=== PATIENT | male | born 1965 | race Caucasian/White ===

== ENCOUNTER 2024-02-11 20:07 | Inpatient (IN) ==
[2024-02-11 20:50] LABS: ABS Basophils 0.1 10^3/uL (0.0-0.1); ABS Eosinophils 0.1 10^3/uL (0.0-0.5); ABS Lymphocytes 1.2 10^3/uL (1.0-4.8); ABS Monocytes 0.6 10^3/uL (0.0-1.1); ABS Neutrophils 6.1 10^3/uL (1.5-7.6); ABS Nucleated RBC 0.05 10^3/ul; Eosinophil % 0.7 %; Hematocrit 55.5 % (38-53); Hemoglobin 18.6 g/dL (13.2-16.3); Lymphocyte % 14.7 %; Mean Corpuscular Hemoglobin 33.3 pg (27-33); Mean Corpuscular Hgb Conc 33.5 g/dL (31-36); Mean Corpuscular Volume 99.5 fL (80-97); Mean Platelet Volume 8.5 fL (7.5-11.2); Nucleated Red Blood Cells % 0.7 %/100WBC (0.0-0.8); Platelet Count 193 10^3/uL (150-450); Red Blood Count 5.58 10^6/uL (4.06-5.63); Red Cell Distribution Width 21.1 % (12-17)
[2024-02-11 20:54] LABS: INR 1.79 (0.85-1.14)
[2024-02-11] MEDS: Furosemide 40 mg/4 ml IV VIAL IV SLOW PU ONE (20:57)
[2024-02-11 21:14] LABS: Calcium 10.3 mg/dL (8.6-10.3); Creatinine, Serum 1.46 mg/dL (0.67-1.17); Magnesium 2.2 mg/dL (1.9-2.7); Potassium 4.6 mmol/L (3.5-5.0); Total Bilirubin 4.7 mg/dL (0.2-1.0); eGFR CKD-EPI 54.7 (>60)
[2024-02-12 01:00] LABS: High Sensitivity Troponin 1 Hr 27 pg/mL (<20)
[2024-02-12] MEDS ORDERED: Metoprolol Tartrate 5 mg VIAL 5 ml VIAL (1 mg/ml) IV PRN ×2 (01:05→02:36)
[2024-02-12] MEDS ORDERED: Sulfur Hexaflouride MICROSPHR 25 MG VIAL IV PRN (02:22)
[2024-02-12] MEDS ORDERED: Albuterol HFA INHALER 8 gm MDI INH PRN (02:32)
[2024-02-12] MEDS: Enoxaparin 100 MG/ML SYR SUBCUT ONE (04:03)
[2024-02-12] MEDS: Bumetanide IV 0.25 MG/ML 4 ml VIAL (1 mg) IV SLOW PU ONE (04:03)
[2024-02-12 06:16] LABS: ABS Basophils 0.1 10^3/uL (0.0-0.1); ABS Lymphocytes 0.9 10^3/uL (1.0-4.8); ABS Monocytes 0.7 10^3/uL (0.0-1.1); ABS Neutrophils 6.1 10^3/uL (1.5-7.6); ABS Nucleated RBC 0.01 10^3/ul; Eosinophil % 0.4 %; Hematocrit 48.9 % (38-53); Hemoglobin 16.6 g/dL (13.2-16.3); Lymphocyte % 11.8 %; Mean Corpuscular Hgb Conc 34.1 g/dL (31-36); Mean Corpuscular Volume 99.8 fL (80-97); Mean Platelet Volume 8.5 fL (7.5-11.2); Nucleated Red Blood Cells % 0.1 %/100WBC (0.0-0.8); Platelet Count 157 10^3/uL (150-450); Red Cell Distribution Width 20.2 % (12-17); White Blood Count 7.8 10^3/uL (3.6-10.2)
[2024-02-12 06:37] LABS: Anion Gap 5 mmol/L (2-16); Blood Urea Nitrogen 27 mg/dL (6-24); CO2 Carbon Dioxide 29 mmol/L (22-32); Calcium 9.3 mg/dL (8.6-10.3); Chloride 91 mmol/L (101-111); Creatinine, Serum 1.35 mg/dL (0.67-1.17); Glucose 86 mg/dL (70-100); Sodium 125 mmol/L (135-145); Transferrin 207 mg/dL (203-362); eGFR CKD-EPI 60.1 (>60)
[2024-02-12 06:49] LABS: TSH Ultra Thyroid Stim Horm 4.51 mcIU/mL (0.34-5.60)
[2024-02-12 06:53] LABS: Ferritin 104.1 ng/mL (24-336)
[2024-02-12] MEDS: Calamine LOTION BTL TOPICAL SCH (09:06)
[2024-02-12] MEDS: Bumetanide IV 0.25 MG/ML 4 ml VIAL (1 mg) IV SLOW PU SCH (09:07)
[2024-02-12] MEDS: CMCS: DAPAGLIFLOZIN 10 MG TAB (NF) PO SCH (09:07)
[2024-02-12 09:45] LABS: Potassium Redraw 4.5 mmol/L (3.5-5.0)
[2024-02-12] MEDS: Lidocaine PATCH 5% PATCH TRANSDERM SCH (11:11)
[2024-02-12] MEDS: Digoxin IV 0.5 MG/2 ML AMP (0.25 MG/ML) IV SLOW PU ONE ×2 (13:54→20:50)
[2024-02-12 16:25] LABS: Albumin 3.7 g/dL (3.5-5.7); Calcium 9.3 mg/dL (8.6-10.3); Creatinine, Serum 1.26 mg/dL (0.67-1.17); Direct Bilirubin 2.5 mg/dL (0.03-0.18); Globulin 3.8 g/dL (2-4); Indirect Bilirubin 2.2 mg/dL (0.3-1.0); Potassium 4.6 mmol/L (3.5-5.0); Total Bilirubin 4.7 mg/dL (0.2-1.0); Total Protein 7.5 g/dL (6.4-8.9); eGFR CKD-EPI 65.3 (>60)
[2024-02-12] MEDS: Enoxaparin 100 MG/ML SYR SUBCUT SCH (17:39)
[2024-02-12 22:13] LABS: Albumin 3.3 g/dL (3.5-5.7); Blood Urea Nitrogen 27 mg/dL (6-24); CO2 Carbon Dioxide 29 mmol/L (22-32); Calcium 8.6 mg/dL (8.6-10.3); Chloride 91 mmol/L (101-111); Creatinine, Serum 1.27 mg/dL (0.67-1.17); Glucose 81 mg/dL (70-100); Sodium 127 mmol/L (135-145); eGFR CKD-EPI 64.7 (>60)
[2024-02-12 22:30] LABS: Potassium, Whole Blood 4.2 mmol/L (3.4-4.5)
[2024-02-12 22:33] LABS: Anion Gap 7 mmol/L (2-16)
[2024-02-13] MEDS: Digoxin IV 0.5 MG/2 ML AMP (0.25 MG/ML) IV SLOW PU ONE (02:08)
[2024-02-13] MEDS: Bumetanide IV 0.25 MG/ML 4 ml VIAL (1 mg) IV SLOW PU ONE ×2 (02:08→21:18)
[2024-02-13 06:14] LABS: ABS Basophils 0.1 10^3/uL (0.0-0.1); ABS Eosinophils 0.1 10^3/uL (0.0-0.5); ABS Monocytes 0.5 10^3/uL (0.0-1.1); ABS Neutrophils 5.2 10^3/uL (1.5-7.6); ABS Nucleated RBC 0.03 10^3/ul; Eosinophil % 0.8 %; Hematocrit 47.2 % (38-53); Hemoglobin 15.7 g/dL (13.2-16.3); Lymphocyte % 14.1 %; Mean Corpuscular Hemoglobin 33.3 pg (27-33); Mean Corpuscular Hgb Conc 33.3 g/dL (31-36); Mean Platelet Volume 7.9 fL (7.5-11.2); Nucleated Red Blood Cells % 0.5 %/100WBC (0.0-0.8); Platelet Count 163 10^3/uL (150-450); Red Blood Count 4.72 10^6/uL (4.06-5.63); Red Cell Distribution Width 19.1 % (12-17); White Blood Count 6.8 10^3/uL (3.6-10.2)
[2024-02-13 06:50] LABS: Albumin 3.1 g/dL (3.5-5.7); Calcium 8.4 mg/dL (8.6-10.3); Creatinine, Serum 1.15 mg/dL (0.67-1.17); Globulin 3.2 g/dL (2-4); Magnesium 1.8 mg/dL (1.9-2.7); Potassium 4.3 mmol/L (3.5-5.0); Total Bilirubin 3.9 mg/dL (0.2-1.0); Total Protein 6.3 g/dL (6.4-8.9); eGFR CKD-EPI 72.9 (>60)
[2024-02-13] MEDS ORDERED: Magnesium Hydroxide LIQ 30 ML UDC PO PRN (15:08)
[2024-02-13] MEDS: Dextran 70/Hypromellose Tears Eye Drops 15 ml BTL (for Artificials Tears) BOTH EYES PRN (17:22)
[2024-02-13] MEDS: Senna TAB 8.6 mg TAB PO SCH (21:18)
[2024-02-13] MEDS: Polyethylene Glycol 3350 17 GM PACKET PO SCH (21:19)
[2024-02-14 07:11] LABS: Albumin 3.2 g/dL (3.5-5.7); Calcium 8.6 mg/dL (8.6-10.3); Creatinine, Serum 1.13 mg/dL (0.67-1.17); Globulin 3.2 g/dL (2-4); Magnesium 1.8 mg/dL (1.9-2.7); Total Bilirubin 3.5 mg/dL (0.2-1.0); Total Protein 6.4 g/dL (6.4-8.9); eGFR CKD-EPI 74.4 (>60)
[2024-02-14 10:19] LABS: Body Fluid Appearance Clear; Body Fluid Color Yellow; Body Fluid Source Peritonial Fluid; Body Fluid Total Nucleated 103 /mcL
[2024-02-14 11:08] LABS: Body Fluid Mono 55 %; Body Fluid Total Cells Counted 200
[2024-02-14 11:12] LABS: Body Fluid Other Cells 53
[2024-02-15] MEDS: Saline NASAL SPRAY 0.65% BTL BOTH NARES ONE (05:34)
[2024-02-15 06:03] LABS: Albumin 2.8 g/dL (3.5-5.7); Creatinine, Serum 0.91 mg/dL (0.67-1.17); Globulin 2.7 g/dL (2-4); Magnesium 1.6 mg/dL (1.9-2.7); Potassium 3.2 mmol/L (3.5-5.0); Total Bilirubin 3.1 mg/dL (0.2-1.0); Total Protein 5.5 g/dL (6.4-8.9); eGFR CKD-EPI 96.5 (>60)
[2024-02-15] MEDS: Bumetanide IV 0.25 MG/ML 4 ml VIAL (1 mg) IV SLOW PU SCH (10:17)
[2024-02-15] MEDS: KCL 20 MEQ/100 ML IVPREMIX 20 MEQ/100 ML BAG IV ONE (10:19)
[2024-02-15] MEDS: Potassium Chlor 20 meq TAB.ER PO ONE (10:22)
[2024-02-15] MEDS: Magnesium Sulfate 2 gm BAG 2 GM/50 ML BAG IVPB ONE (10:23)
[2024-02-15 14:13] VITALS: BP 114/73
[2024-02-16 10:17] LABS: Fluid Type, Protein, Total PERITONEAL; Glucose, BF 96 mg/dL; Total Protein, BF 2.6 g/dL
[2024-02-16 10:23] LABS: Lactate Dehydrogenase, BF 79 U/L
[2024-02-16 13:49] LABS: BF PH 7.7
[2024-02-18 11:22] LABS: Albumin, BF 1.6 g/dL; Fluid Type, Albumin PERITONEAL
== END 2024-02-15 19:00 | disposition short-term general hospital (02) | DRG 194 ==
LOC: ED 20:07 → EDHOLD 20:07 → SUATTDRO 02-12 00:38 → MEDTELE 02-12 02:19 → SUATTDRO 02-13 12:00
PROVIDERS: ADMIT Hospitalist; ATTEND Student in an Organized Health Care Education/Training Program